=== PATIENT | male | born 1990 | race African-American/Black ===

== ENCOUNTER 2017-11-08 07:50 | Emergency (ER) | payer SELFPAY ==
[2017-11-08] MEDS ORDERED: Adacel (T-DAP) 0.5 ML VIAL ONE (07:57)
[2017-11-08] MEDS ORDERED: Amoxicillin/Potassium Clav 875 MG TAB ONE (07:57)
[2017-11-08] MEDS ORDERED: Lidocaine 1% w/Epinephrine 1:100K 20 ML VIAL ONE (08:15)
== END 2017-11-08 10:32 | disposition home or self-care (01) ==
LOC: ERS 07:50
DX: S01.512A Laceration without foreign body of oral cavity, initial encounter (principal); F90.9 Attention-deficit hyperactivity disorder, unspecified type; Z87.891 Personal history of nicotine dependence; W50.3XXA Accidental bite by another person, initial encounter
CPT/HCPCS: 12052; 90471; 90715; J2001

== ENCOUNTER 2022-08-22 11:23 | Emergency (ER) | payer OTHER, BC ==
[2022-08-22] MEDS ORDERED: Ibuprofen 800 MG TAB ONE (12:49)
== END 2022-08-22 15:15 | disposition home or self-care (01) ==
LOC: ERS 11:23
DX: S51.842A Puncture wound with foreign body of left forearm, initial encounter (principal); S50.812A Abrasion of left forearm, initial encounter; M25.562 Pain in left knee; M54.2 Cervicalgia; Z87.891 Personal history of nicotine dependence; V40.5XXA Car driver injured in collision with pedestrian or animal in traffic accident, initial encounter
CPT/HCPCS: 72040